=== PATIENT | male | born 1955 | race Caucasian/White ===

== ENCOUNTER 2018-09-05 11:18 | Emergency (ER) | payer OTHER ==
[~2018-09-05] VITALS: Ht 177.8 cm; Wt 90.9 kg
[2018-09-05] MEDS ORDERED: normal saline 1000ML IV soln IVB STA (11:29)
[2018-09-05] MEDS ORDERED: diphenhydrAMINE 50 mg/ml inj IV ONE (11:30)
[2018-09-05] MEDS ORDERED: methylPREDNISolone sod succ 125mg/2ml vial IV ONE (11:30)
[2018-09-05] MEDS ORDERED: famotidine/PF 10 mg/ml inj IV ONE (11:30)
[2018-09-05 12:50] VITALS: BP 153/76
[2018-09-05] MEDS ORDERED: DIPH-423 PO (13:59)
[2018-09-05] MEDS ORDERED: PRED20TA PO (13:59)
[2018-09-05] MEDS ORDERED: FAMO-128 PO (13:59)
== END 2018-09-05 14:13 | disposition home or self-care (01) ==
LOC: ER 11:18
DX: T63.461A Toxic effect of venom of wasps, accidental (unintentional), initial encounter (principal); R42 Dizziness and giddiness; Z88.0 Allergy status to penicillin; Z87.891 Personal history of nicotine dependence; Y92.89 Other specified places as the place of occurrence of the external cause
CPT/HCPCS: 93005; 96361; 96374; 96375; 99283; J1200; J2930; J3490; J7030